=== PATIENT | male | born 1940 | race Caucasian/White ===

== ENCOUNTER → 2021-07-10 | Outpatient (REF) | payer MEDICARE, OTHER ==
[~2021-07-10] MED LIST: BISO10TA13 PO; COUM1TAB17 PO; COUM2.5T17 PO; INSULANT SC; NEXI40CA PO; NOVOINJ3 SC; SIMV40TA20 PO; TRIC145T22 PO; VIAG100T PO; VITA100067 PO; [UNRECOGNIZED DRUG - OTHER] PO
== END ==
LOC: M LAB REF 12:34
PROVIDERS: ATTEND Nurse Practitioner Family
DX: E83.42 Hypomagnesemia (principal)

== ENCOUNTER → 2023-03-26 | Outpatient (REF) | payer MEDICARE, OTHER ==
[2023-03-26 19:37] LABS: FERRITIN 287.4 NG/ML (10.5-307.3)
== END ==
LOC: M LAB REF 17:36
PROVIDERS: ATTEND Nurse Practitioner Family
DX: D50.9 Iron deficiency anemia, unspecified (principal)